=== PATIENT | female | born 1980 | race Caucasian/White ===

== ENCOUNTER 2019-10-29 18:17 | Emergency (ER) | payer SELFPAY ==
--- NOTE | ~2019-10-29 | XR_ITS ---
XR ankle RT min 3V 10/29/2019 18:47 Indication: Right ankle pain after fall Procedure: 4 views right ankle Comparison: 12/01/2011 Findings: There is an avulsion fracture of the medial malleolus, possibly acute. Ankle mortise intact . Distal fibula within normal limits. No focal soft tissue abnormality. No radiopaque foreign bodies. Impression: 1: Medial malleolar avulsion fracture, possibly acute. Reviewed, dictated and finalized at location A. [employer] Impression: 1: Medial malleolar avulsion fracture, possibly acute.
--- NOTE | 2019-10-29 18:27 | ED.LOWEXIN ---
HPI - Extremity Injury (Lower) General Chief Complaint: Extremity Injury, Lower Stated Complaint: Right ankle pain Time Seen by Provider: 10/29/19 18:27 Source: patient and RN notes reviewed History of Present Illness HPI Narrative: Patient is a 39-year-old female that presents the urgent care with complaints of right ankle pain and right shoulder pain. Patient states that there was a hole in 1 of her concrete steps outside of her home and when she was walking down the 3 stairs that she stepped into the hole with her right foot and fell downward. Patient states that most of the brunt was on her right shoulder. Patient denies hitting her head or any loss of consciousness. Patient ambulated without difficulty into the facility. Patient states she took ibuprofen prior to her arrival. No other acute complaints. No acute distress noted. Patient read the plan of care. Related Data Home Medications Medication Instructions Recorded Confirmed Implanon Control Inplant 10/29/19 cyclobenzaprine 5 mg PO TID 10/29/19 10/29/19 fluoxetine [Prozac] 80 mg PO DAILY 10/29/19 10/29/19 gabapentin 800 mg PO TID 10/29/19 10/29/19 levothyroxine 75 mcg PO DAILY 10/29/19 10/29/19 pantoprazole [Protonix] 40 mg PO DAILY 10/29/19 10/29/19 Allergies Allergy/AdvReac Type Severity Reaction Status Date / Time benzonatate Allergy Mild Unknown Verified 10/29/19 18:35 venlafaxine Allergy Mild Unknown Verified 10/29/19 18:35 metoclopramide Allergy Unknown Unknown Verified 10/29/19 18:35 naproxen AdvReac Mild Unknown Verified 10/29/19 18:35 rofecoxib AdvReac Mild Unknown Verified 10/29/19 18:35 FLUTICASONE PROPIONATE Allergy Mild Unknown Uncoded 10/29/19 18:35 SALMETEROL XINAFOATE Allergy Mild Unknown Uncoded 10/29/19 18:35 Review of Systems Review of Systems: Narrative: CONSTITUTIONAL: Denies fever, chills, or sweats. EYES: Denies visual changes, redness, or discharge. ENT: Denies rhinorrhea, congestion, sore throat, or otalgia. CARDIOVASCULAR: Denies chest pain, palpitations, or edema. RESPIRATORY: Denies cough or dyspnea. GASTROINTESTINAL: Denies abdominal pain, nausea, vomiting, or diarrhea. GENITOURINARY: Denies dysuria or hematuria. SKIN: Denies rash or itching. MUSCULOSKELETAL: Reports of right ankle pain and right shoulder pain NEUROLOGIC: Denies headache, numbness, or weakness. All other systems reviewed are negative, except as documented in HPI. PMFSH Social History Social History Gender identity (if verbalized by the patient): Female Comments At the time of my signature, I reviewed and agree with the nursing past medical, surgical, social, and family history. There is no relevant family history pertinent to the patient complaint. Exam Narrative: Exam Narrative: GENERAL: This is a well-nourished, well-developed patient, in no apparent distress. HEAD: normocephalic, atraumatic. EYES: PERRL. Sclera clear/white. Vision is grossly intact. EARS: External ears normal NOSE: External nose normal with no obvious nasal discharge THROAT: Mucous membranes moist NECK: Neck supple CARDIOVASCULAR: Regular rate and rhythm without murmurs, gallops, or rubs. RESPIRATORY: Clear to auscultation. Breath sounds equal bilaterally. No wheezes, rales, or rhonchi. SKIN: warm, intact with no suspicious lesions or rash, good texture and turgor. NEURO: awake, alert, and oriented to person, place and time. There were no obvious focal neurologic abnormalities. EXTREMITIES: Mild edema with moderate tenderness to the lateral aspect of the right malleolus without obvious deformity or fracture. Right pedal pulse positive and strong. Right capillary refill less than 2 seconds. Range of motion not tested to right ankle due to pain and swelling. Mild tenderness to anterior right shoulder with normal range of motion. Course Vital Signs Vital signs: Vital Signs Temperature 98.0 F 10/29/19 18:30 Pulse Rate 90 10/29/19 18:30 Respiratory Rate 18
[2019-10-29 18:30] VITALS: BP 128/73; PULSE 90; RESP 18; TEMP 36.7; O2SAT 99
== END 2019-10-29 19:12 | disposition home or self-care (01) ==
PROVIDERS: Emergency Provider Nurse Practitioner Family
DX: S82.51XA Displaced fracture of medial malleolus of right tibia, initial encounter for closed fracture (principal); W10.9XXA Fall (on) (from) unspecified stairs and steps, initial encounter; K21.9 Gastro-esophageal reflux disease without esophagitis; E03.9 Hypothyroidism, unspecified; E05.90 Thyrotoxicosis, unspecified without thyrotoxic crisis or storm; F32.9 Major depressive disorder, single episode, unspecified
CPT/HCPCS: 73610; 99214; G0463

== ENCOUNTER 2021-07-23 12:45 | Outpatient (CLI) | payer SELFPAY ==
--- NOTE | ~2021-07-23 | XR_ITS ---
EXAMINATION: XR chest 2V DATE: 07/23/2021 13:25 INDICATION: Cough and fever TECHNIQUE: PA and lateral views of the chest are obtained. COMPARISON: 01/10/2019 FINDINGS: The lungs are free of acute opacities. There is no pleural effusion or pneumothorax. The ca rdiomediastinal silhouette is normal. There is moderate thoracic spondylosis. IMPRESSION: 1. No acute cardiopulmonary abnormality. Reviewed, dictated and finalized at location B. [employer]TE[employer]
== END 2021-07-23 12:46 | disposition home or self-care (01) ==
PROVIDERS: PCP Internal Medicine; Visit Provider Internal Medicine
DX: R05.9 Cough, unspecified (principal)
CPT/HCPCS: 71046

== ENCOUNTER 2022-02-15 14:32 | Outpatient (CLI) | payer BC, SELFPAY ==
--- NOTE | ~2022-02-15 | XR_ITS ---
XR chest 2V DATE: 02/15/2022 15:05 INDICATION: Cough. Bronchitis. TECHNIQUE: 2 views COMPARISON: 07/23/2021 PA and lateral chest FINDINGS: Normal heart size. No hilar or mediastinal enlargement. No pulmonary infiltrate or consolid ation, pleural effusion or pulmonary vascular congestion or pneumothorax. Status post cholecystectomy. IMPRESSION: No active cardiopulmonary disease Reviewed, dictated and finalized at location A.
== END 2022-02-15 14:33 ==
LOC: MICIMG 14:36
PROVIDERS: PCP Internal Medicine; Visit Provider Internal Medicine
DX: R05.3 Chronic cough (principal); U09.9 Post COVID-19 condition, unspecified
CPT/HCPCS: 71046

== ENCOUNTER 2023-05-10 09:50 | Emergency (ER) | payer OTHER, SELFPAY ==
--- NOTE | 2023-05-10 10:06 | ED.URI ---
HPI - URI/Sore Throat General Chief Complaint: Upper Respiratory Infection Stated Complaint: SORE THROAT/HEADACHE/BODY ACHES Time Seen by Provider: 05/10/23 10:00 Source: patient and RN notes reviewed History of Present Illness HPI Narrative: Patient is a 43-year-old female presents to urgent care with complaints of sore throat, headache, body aches and fever since Monday. 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 Patient has been taking [place]. Denies any nausea or vomiting. No other acute complaints. No acute distress noted. Patient aware of the plan of care. Some parts of this dictation were generated by voice recognition software and may contain typographical and/or grammatical inaccuracies. Related Data Home Medications Medication Instructions Recorded Confirmed fluoxetine 40 mg capsule (Prozac) 80 mg PO DAILY 10/29/19 05/10/23 gabapentin 800 mg tablet 800 mg PO TID 10/29/19 05/10/23 pantoprazole 40 mg tablet,delayed 40 mg PO DAILY 10/29/19 05/10/23 release (Protonix) amitriptyline 100 mg tablet 100 mg PO DIRECTED 05/10/23 05/10/23 aripiprazole 5 mg tablet 5 mg PO DIRECTED 05/10/23 05/10/23 bupropion HCl 150 mg tablet,12 hr 150 mg PO DIRECTED 05/10/23 05/10/23 sustained-release levothyroxine 88 mcg tablet 88 mcg PO DAILY 05/10/23 05/10/23 ondansetron 8 mg disintegrating 8 mg PO DIRECTED 05/10/23 05/10/23 tablet sertraline 100 mg tablet 100 mg PO DIRECTED 05/10/23 05/10/23 Allergies Allergy/AdvReac Type Severity Reaction Status Date / Time benzonatate Allergy Mild Unknown Verified 11/22/19 10:15 venlafaxine Allergy Mild Unknown Verified 11/22/19 10:15 fluticasone Allergy Unknown unknown Verified 11/22/19 10:15 [From Advair Diskus] metoclopramide Allergy Unknown Unknown Verified 11/22/19 10:15 salmeterol Allergy Unknown unknown Verified 11/22/19 10:15 [From Advair Diskus] sumatriptan Allergy Unknown Unknown Verified 11/22/19 10:15 naproxen AdvReac Mild Unknown Verified 11/22/19 10:15 rofecoxib AdvReac Mild Unknown Verified 11/22/19 10:15 Review of Systems Review of Systems: CONSTITUTIONAL: Reports fever body aches EYES: Denies visual changes, redness, or discharge. ENT: Denies rhinorrhea, congestion, otalgia. Reports of sore throat CARDIOVASCULAR: Denies chest pain, palpitations, or edema. RESPIRATORY: Denies cough or dyspnea. GASTROINTESTINAL: Denies abdominal pain, nausea, vomiting, or diarrhea. GENITOURINARY: Denies dysuria or hematuria. SKIN: Denies rash or itching. MUSCULOSKELETAL: Denies back pain, joint pain NEUROLOGIC: Reports of headache All other systems reviewed are negative, except as documented in HPI. [facility] Past Medical History Medical History (Updated 05/10/23 @ 10:20 by KAREN Smyth) Anxiety Constipation Contusion of shoulder and upper arm Depression Diarrhea Fibromyalgia GERD (gastroesophageal reflux disease) Headache Hypothyroidism Nausea & vomiting Right ankle instability Right ankle sprain Shortness of breath SLE (systemic lupus erythematosus) Sleep disorder Stomach pain Vision abnormalities Surgical History Surgical History History of cholecystectomy Dr. Powell History of surgery Lis Franc FX repair, Dr. Michel Family History Family History Other Arthritis Heart disease Social History Social History Smoking status: Never smoker Alcohol intake: current Alcohol use details: 1 per month Gender identity (if verbalized by the patient): Female Comments At the time of my signature, I reviewed and agree with the nursing past medical, surgical, social, and family history. There is no relevant family history pertinent to the patient complaint. Exam Narrative: GENERAL: This is a well-nourished, well-developed patient, in
[2023-05-10 10:11] VITALS: BP 129/82; PULSE 93; RESP 16; TEMP 37.2; O2SAT 100
== END 2023-05-10 10:30 | disposition home or self-care (01) ==
PROVIDERS: Emergency Provider Nurse Practitioner Family; PCP Internal Medicine
DX: J02.0 Streptococcal pharyngitis (principal); M79.7 Fibromyalgia; K21.9 Gastro-esophageal reflux disease without esophagitis; E03.9 Hypothyroidism, unspecified; M32.9 Systemic lupus erythematosus, unspecified; F41.9 Anxiety disorder, unspecified; F32.A Depression, unspecified
CPT/HCPCS: 87880; 99213; G0463

== ENCOUNTER 2023-05-18 10:04 | Emergency (ER) | payer OTHER, SELFPAY ==
[2023-05-18 10:15] VITALS: BP 123/81; PULSE 99; RESP 16; TEMP 36.8; O2SAT 98
--- NOTE | 2023-05-18 10:15 | ED.URI ---
HPI - URI/Sore Throat General Chief Complaint: Upper Respiratory Infection Stated Complaint: Congested nose;Sore Throat Time Seen by Provider: 05/18/23 10:15 Source: patient Mode of arrival: ambulatory Limitations: no limitations History of Present Illness HPI Narrative: Patient is a 43-year-old female who presents with congestion and sore throat. Patient was diagnosed with strep 05/10 in is currently still taking her amoxicillin. Patient states she took an at-home COVID test and it was positive today. Patient states sore throat has improved but congestion has worsened since Monday. Denies any fever, chills, nausea, vomiting, diarrhea, ear pain. Has had mild body aches with was also present with strep. Patient has been taking ibuprofen. Related Data Home Medications Medication Instructions Recorded Confirmed fluoxetine 40 mg capsule (Prozac) 80 mg PO DAILY 10/29/19 05/18/23 gabapentin 800 mg tablet 800 mg PO TID 10/29/19 05/18/23 pantoprazole 40 mg tablet,delayed 40 mg PO DAILY 10/29/19 05/18/23 release (Protonix) amitriptyline 100 mg tablet 100 mg PO DIRECTED 05/10/23 05/18/23 aripiprazole 5 mg tablet 5 mg PO DIRECTED 05/10/23 05/18/23 bupropion HCl 150 mg tablet,12 hr 150 mg PO DIRECTED 05/10/23 05/18/23 sustained-release levothyroxine 88 mcg tablet 88 mcg PO DAILY 05/10/23 05/18/23 ondansetron 8 mg disintegrating 8 mg PO DIRECTED 05/10/23 05/18/23 tablet sertraline 100 mg tablet 100 mg PO DIRECTED 05/10/23 05/18/23 Allergies Allergy/AdvReac Type Severity Reaction Status Date / Time benzonatate Allergy Mild Unknown Verified 05/18/23 10:28 venlafaxine Allergy Mild Unknown Verified 05/18/23 10:28 fluticasone Allergy Unknown unknown Verified 05/18/23 10:28 [From Advair Diskus] metoclopramide Allergy Unknown Unknown Verified 05/18/23 10:28 salmeterol Allergy Unknown unknown Verified 05/18/23 10:28 [From Advair Diskus] sumatriptan Allergy Unknown Unknown Verified 05/18/23 10:28 naproxen AdvReac Mild Unknown Verified 05/18/23 10:28 rofecoxib AdvReac Mild Unknown Verified 05/18/23 10:28 Review of Systems Review of Systems: All systems reviewed & are unremarkable except as noted in HPI and below Constitutional: Constitutional: Denies body ache(s), Denies chills, Denies fatigue, Denies fever(s), Denies headache(s), Denies malaise and Denies weakness Eyes: Eyes: Denies blurry vision, Denies itchy eyes and Denies loss of vision ENT: Denies otalgia, Denies headache(s), Reports nasal congestion, Denies sinus pain and Reports sore throat Cardiovascular: Cardiovascular: Denies chest pain, Denies irregular heart rhythm and Denies dyspnea Respiratory: Respiratory: Denies cough and Denies dyspnea Gastrointestinal: Gastrointestinal: Denies abdominal pain, Denies diarrhea, Denies nausea and Denies vomiting Musculoskeletal: Musculoskeletal: Denies back pain, Denies myalgias and Denies arthralgias Integumentary/Breasts: Skin/Breast: Denies pruritus and Denies rash Neurologic: Denies headache(s), Denies loss of vision and Denies weakness Psychiatric: Psychiatric: Reports no additional psychiatric complaints Endocrine: Endocrine: Denies fatigue Allergic/Immunologic: Allergic/Immunologic: Denies itchy eyes PMFSH Past Medical History Medical History (Updated 05/18/23 @ 10:37 by Nikki Ayala APRN) Anxiety Constipation Contusion of shoulder and upper arm Depression Diarrhea Fibromyalgia GERD (gastroesophageal reflux disease) Headache Hypothyroidism Nausea & vomiting Right ankle instability Right ankle sprain Shortness of breath SLE (systemic lupus erythematosus) Sleep disorder Stomach pain Vision abnormalities Surgical History Surgical History History of cholecystectomy Dr. Powell History of surgery Lis Franc FX repair, Dr. Michel Family History Family History
== END 2023-05-18 10:40 | disposition home or self-care (01) ==
PROVIDERS: Emergency Provider Nurse Practitioner Family; PCP Internal Medicine
DX: U07.1 COVID-19 (principal); M79.7 Fibromyalgia; K21.9 Gastro-esophageal reflux disease without esophagitis; E03.9 Hypothyroidism, unspecified; M32.9 Systemic lupus erythematosus, unspecified; F41.9 Anxiety disorder, unspecified; F32.A Depression, unspecified
CPT/HCPCS: 87426; 99213; C9803; G0463

== ENCOUNTER 2023-10-12 13:00 | Emergency (ER) | payer SELFPAY ==
--- NOTE | 2023-10-12 13:11 | ED.URI ---
HPI - URI/Sore Throat General Chief Complaint: Upper Respiratory Infection Stated Complaint: COUGH Time Seen by Provider: 10/12/23 13:31 Source: patient, RN notes reviewed and old records reviewed Mode of arrival: ambulatory Limitations: no limitations History of Present Illness HPI Narrative: 43-year-old female presents to the [facility] with complaints of a cough for 12 days. Has tried nxco-cva-ocwdxal products. States that a relative was flu A positive last week and believes that she had flu a. States the cough has been lingering since. Related Data Home Medications Medication Instructions Recorded Confirmed gabapentin 800 mg tablet 800 mg PO TID 10/29/19 10/12/23 pantoprazole 40 mg tablet,delayed 40 mg PO DAILY 10/29/19 10/12/23 release (Protonix) levothyroxine 88 mcg tablet 88 mcg PO DAILY 05/10/23 10/12/23 cetirizine 10 mg tablet (Zyrtec) 10 mg PO DAILY 10/12/23 10/12/23 Allergies Allergy/AdvReac Type Severity Reaction Status Date / Time benzonatate Allergy Mild Unknown Verified 10/12/23 13:21 venlafaxine Allergy Mild Unknown Verified 10/12/23 13:21 fluticasone Allergy Unknown unknown Verified 10/12/23 13:21 [From Advair Diskus] metoclopramide Allergy Unknown Unknown Verified 10/12/23 13:21 salmeterol Allergy Unknown unknown Verified 10/12/23 13:21 [From Advair Diskus] sumatriptan Allergy Unknown Unknown Verified 10/12/23 13:21 naproxen AdvReac Mild Unknown Verified 10/12/23 13:21 rofecoxib AdvReac Mild Unknown Verified 10/12/23 13:21 Review of Systems Review of Systems: All systems reviewed & are unremarkable except as noted in HPI and below Constitutional: Constitutional: Reports no additional constitutional complaints Eyes: Eyes: Reports no additional eye complaints ENT: Reports system reviewed and no additional complaints, except as documented Cardiovascular: Cardiovascular: Reports no additional cardiovascular complaints, Denies chest pain and Denies dyspnea Respiratory: Respiratory: Reports as per HPI, Denies chest congestion, Reports cough and Denies dyspnea Gastrointestinal: Gastrointestinal: Reports no additional gastrointestinal complaints, Denies abdominal pain, Denies nausea and Denies vomiting Musculoskeletal: Musculoskeletal: Reports no additional musculoskeletal complaints Integumentary/Breasts: Skin/Breast: Reports system reviewed and no additional complaints, except as docu Neurologic: Reports system reviewed and no additional complaints, except as documented Psychiatric: Psychiatric: Reports no additional psychiatric complaints Allergic/Immunologic: Allergic/Immunologic: Reports no additional allergic/immunologic complaints [facility] Past Medical History Medical History Anxiety Constipation Contusion of shoulder and upper arm Depression Diarrhea Fibromyalgia GERD (gastroesophageal reflux disease) Headache Hypothyroidism Nausea & vomiting Right ankle instability Right ankle sprain Shortness of breath SLE (systemic lupus erythematosus) Sleep disorder Stomach pain Vision abnormalities Surgical History Surgical History History of cholecystectomy Dr. Powell History of surgery Lis Franc FX repair, Dr. Michel Family History Family History Other Arthritis Heart disease Social History Social History Smoking status: Never smoker Alcohol intake: current Alcohol use details: 1 per month Gender identity (if verbalized by the patient): Female Comments At the time of my signature, I reviewed and agree with the nursing past medical, surgical, social, and family history. There is no relevant family history pertinent to the patient complaint. Exam Const: General: cooperative, healthy appearing, comfortable, no acute distress, well developed,
[2023-10-12 13:20] VITALS: BP 136/93; PULSE 88; RESP 16; TEMP 37.4; O2SAT 98
[2023-10-12 13:23] VITALS: BP 136/93; PULSE 88; RESP 16; TEMP 37.4; O2SAT 98
== END 2023-10-12 13:57 | disposition home or self-care (01) ==
PROVIDERS: Emergency Provider Nurse Practitioner; PCP Internal Medicine
DX: J40 Bronchitis, not specified as acute or chronic (principal); M79.7 Fibromyalgia; K21.9 Gastro-esophageal reflux disease without esophagitis; E03.9 Hypothyroidism, unspecified; M32.9 Systemic lupus erythematosus, unspecified
CPT/HCPCS: 99213; G0463

== ENCOUNTER 2025-05-22 16:57 | Emergency (ER) | payer BC, SELFPAY ==
--- NOTE | 2025-05-22 16:57 | ED.ANIMALBIT ---
HPI - Animal Bite General Chief Complaint: Wound/Laceration Stated Complaint: CAT BITE Time Seen by Provider: 05/22/25 16:57 Source: patient Mode of arrival: ambulatory Limitations: no limitations History of Present Illness HPI narrative: Shira is a 45-year-old female patient presenting to the clinic today with complaints of a cat bite to her right middle finger and her left upper forearm. Cat bite occurred last night. States her cat jumped into her car and got its tail caught in the door and was freaking out. When trying to help a cat he bite her. Cat is up-to-date on its immunizations. Patient's tetanus shot is unknown. She denies any fevers, chills, body aches. Related Data Home Medications ?Medication ?Instructions ?Recorded ?Confirmed ?Last Taken ?Type gabapentin 800 mg tablet 800 mg PO TID 10/29/19 05/22/25 Unknown History pantoprazole 40 mg tablet,delayed 40 mg PO DAILY 10/29/19 05/22/25 Unknown History release (Protonix) levothyroxine 88 mcg tablet 88 mcg PO DAILY 05/10/23 05/22/25 Unknown History cetirizine 10 mg tablet (Zyrtec) 10 mg PO DAILY 10/12/23 05/22/25 Unknown History Allergies Allergy/AdvReac Type Severity Reaction Status Date / Time benzonatate Allergy Mild Unknown Verified 05/22/25 17:10 venlafaxine Allergy Mild Unknown Verified 05/22/25 17:10 fluticasone (From Advair Allergy Unknown unknown Verified 05/22/25 17:10 Diskus) metoclopramide Allergy Unknown Unknown Verified 05/22/25 17:10 salmeterol (From Advair Allergy Unknown unknown Verified 05/22/25 17:10 Diskus) sumatriptan Allergy Unknown Unknown Verified 05/22/25 17:10 naproxen AdvReac Mild Unknown Verified 05/22/25 17:10 rofecoxib AdvReac Mild Unknown Verified 05/22/25 17:10 Review of Systems Review of Systems: Pertinent positives per HPI. Patient denies any fever, chills, rash, headache, visual changes, dizziness, cough, runny nose, sore throat, shortness of breath, chest pain, palpitations, nausea, vomiting, diarrhea, constipation, abdominal pain, or any urinary issues. [facility] Past Medical History Medical History Contusion of shoulder and upper arm Right ankle instability Right ankle sprain SLE (systemic lupus erythematosus) Fibromyalgia Sleep disorder Anxiety Depression Hypothyroidism Diarrhea Constipation GERD (gastroesophageal reflux disease) Stomach pain Nausea & vomiting Shortness of breath Vision abnormalities Headache Surgical History Surgical History History of surgery Lis Franc FX repair, Dr. Michel History of cholecystectomy Dr. Powell Family History Family History Other Arthritis Heart disease Social History Social History Smoking status: Never smoker Alcohol intake: current Alcohol use details: 1 per month Gender identity (if verbalized by the patient): Female Comments At the time of my signature, I reviewed and agree with the nursing past medical, surgical, social, and family history. There is no relevant family history pertinent to the patient complaint. Exam Narrative: General: Well-developed, well nourished, in no apparent distress Head: Normocephalic, atraumatic. Cardio: Regular rate and rhythm, s1 and s2 normal, no murmur appreciated. Resp: Clear to auscultation bilaterally, no rhonchi, rales, wheezing or rubs. Integumentary: [place], warm, and dry, 3 puncture wound- infected cat bite to the left upper forearm with redness measuring 10 x 7 cm, open infected 1cm wound to the right 3rd distal finger with redness and swelling extending to the dip joint. Course Course Emergency Course: Portions of this record may have been created with voice recognition software. Level of Care: Express Care Visit Vital Signs Vital signs: Vital Signs Temperature 36.5 C 05/22/25 17:10 Pulse Rate 88 05/22/25 17:10 Respiratory Rate 16 05/22/25 17:10 Blood Pressure 156/86 H 05/22/25 17:10 Pulse Oximetry 100 05/22/25 17:10 Temperature 36.5 C 05/22/25 17:10 Pulse Rate 88 05/22/25 17:10 Respiratory Rate 16 05/22/25 17:10 Blood Pressure 156/86 H 05/22/25 17:10 Pulse Oximetry 100 05/22/25 17:10 Vital signs reviewed MDM - Animal Bite MDM Narrative Medical decision making narrative: At the time of visit patient is resting comfortably on the exam table. Patient appears to be nontoxic. complaints of a cat bite to her right middle finger and her left upper forearm. Cat bite occurred last night. States her cat jumped into her car and got its tail caught in the door and was freaking out. When trying to help a cat he bite her. Cat is up-to-date on its immunizations. Patient's tetanus shot is unknown. On exam patient has 3 puncture wound- infected cat bite to the left upper forearm with redness measuring 10 x 7 cm, open infected 1cm wound to the right 3rd distal finger with redness and swelling extending to the dip joint. Tdap 0.5 mL ordered. Medications: Tdap 0.5 mL IM given in the clinic today Plan: I suspect patient has infected cat bite to the right middle finger and to the left upper forearm. Prescription for Augmentin was sent to the pharmacy. Supportive measures were discussed with the patient and they voiced understanding discharge instructions and agrees to treatment plan. Return precautions reviewed Differential Diagnosis Differential diagnosis: Likely bite by animal, cat bite and other (Puncture wound, cellulitis) Discharge Plan Discharge Clinical Impression: Infected cat bite of finger Qualifiers: Encounter type: initial encounter Qualified Code(s): S61.259A - Open bite of unspecified finger without damage to nail, initial encounter Infected cat bite of forearm Qualifiers: Encounter type: initial encounter Laterality: left Qualified Code(s): S51.852A - Open bite of left forearm, initial encounter Patient Disposition: Home Condition: Stable Instructions: Antibiotic Form, Animal Bite (ED), Puncture Wound (ED) Additional Instructions: Tdap was given in the clinic today. May take Tylenol/Motrin as needed for pain or fever Wash daily with soap and water May apply triple antibiotic ointment to the open wound twice daily times 48 hours Keep wound clean and dry Watch for signs and symptoms of worsening infection-increase in redness, streaking, swelling, purulent discharge, or increase in pain. Follow up with your PCP in 2-3 days for wound check Patient Language: [place] Prescriptions: New amoxicillin-pot clavulanate 875-125 mg tablet 1 tablet PO Q12H 7 Days Qty: 14 0RF No Action levothyroxine 88 mcg tablet 88 mcg PO DAILY cetirizine [Zyrtec] 10 mg Tablet 10 mg PO DAILY doxycycline monohydrate 100 mg tablet 100 mg PO BID Qty: 14 0RF albuterol sulfate 90 mcg/actuation HFA aerosol inhaler 2 puff inhalation QID PRN (Reason: shortness of breath or wheezing) Qty: 6.7 0RF (DME) Aerochamber MV Spacer See Rx Instructions .Route Qty: 1 0RF Rx Instructions: As directed prednisone 20 mg tablet See Rx Instructions .Route .COMPLEX Qty: 9 0RF Rx Instructions: Take 40 mg daily for 3 days, 20 mg daily for 3 days gabapentin 800 mg Tablet 800 mg PO TID pantoprazole [Protonix] 40 mg Tablet,Delayed Release (Dr/Ec) 40 mg PO DAILY Follow-up/Referrals: Timoteo,EMIL Bach [Primary Care Provider, Unknown] Time of Disposition: 17:17 Quality NIHSS Nursing Documentation ED NIHSS nursing documentation: reviewed/agree
[2025-05-22 17:10] VITALS: BP 156/86; PULSE 88; RESP 16; TEMP 36.5; O2SAT 100
[2025-05-22] MEDS: TETANUS,DIPHTHERIA,AC PERTUSSIS ADULT (0.5 ML) BOOSTRIX IM (17:24)
== END 2025-05-22 17:42 | disposition home or self-care (01) ==
PROVIDERS: Emergency Provider Nurse Practitioner Family; PCP Registered Nurse
DX: S51.832A Puncture wound without foreign body of left forearm, initial encounter (principal); S61.252A Open bite of right middle finger without damage to nail, initial encounter; W55.01XA Bitten by cat, initial encounter; Z23 Encounter for immunization; M32.9 Systemic lupus erythematosus, unspecified; M79.7 Fibromyalgia; E03.9 Hypothyroidism, unspecified; K21.9 Gastro-esophageal reflux disease without esophagitis
CPT/HCPCS: 90471; 90715; 99213; G0463